=== PATIENT | female | born 1955 | race Caucasian/White ===

== ENCOUNTER → 2023-09-24 07:32 | Outpatient (REF) | payer MEDICARE, OTHER, SELFPAY | LOC: RAD 07:32 | PROVIDERS: ATTENDING PHYSICIAN Internal Medicine Rheumatology; FAMILY PHYSICIAN Family Medicine | DX: M81.0 Age-related osteoporosis without current pathological fracture (principal) | CPT/HCPCS: 77080 ==

== ENCOUNTER → 2023-11-12 14:35 | Outpatient (REF) | payer MEDICARE, SELFPAY | LOC: WDC 14:35 | PROVIDERS: ATTENDING PHYSICIAN Nurse Practitioner Adult Health; FAMILY PHYSICIAN Family Medicine | DX: R92.2 Inconclusive mammogram (principal); Z80.3 Family history of malignant neoplasm of breast | CPT/HCPCS: 76641 ==

== ENCOUNTER → 2023-11-23 09:41 | Outpatient (REF) | payer MEDICARE, SELFPAY ==
--- NOTE | 2023-11-23 15:25 | OID.BR.INTR ---
LUPED Breast Navigator - Initial
- -
Date of Contact: 11/23/23
Met with patient. Patient given written information on navigator services available at [facility]. Will follow up as needed per protocol.
== END ==
LOC: WDC 09:41
PROVIDERS: ATTENDING PHYSICIAN Nurse Practitioner Adult Health; FAMILY PHYSICIAN Family Medicine
DX: N63.11 Unspecified lump in the right breast, upper outer quadrant (principal)
CPT/HCPCS: 88305; 19083; 77065; A4648

== ENCOUNTER → 2024-01-01 07:05 | Outpatient (REF) | payer MEDICARE, SELFPAY | LOC: WDC 07:05 | PROVIDERS: ATTENDING PHYSICIAN Nurse Practitioner Adult Health; FAMILY PHYSICIAN Nurse Practitioner Family | DX: Z12.31 Encounter for screening mammogram for malignant neoplasm of breast (principal) | CPT/HCPCS: 77063; 77067 ==

== ENCOUNTER → 2024-01-10 08:28 | Outpatient (REF) | payer MEDICARE, SELFPAY | LOC: WDC 08:28 | PROVIDERS: ATTENDING PHYSICIAN Nurse Practitioner Adult Health; FAMILY PHYSICIAN Nurse Practitioner Family | DX: R92.8 Other abnormal and inconclusive findings on diagnostic imaging of breast (principal) | CPT/HCPCS: 76642 ==

== ENCOUNTER → 2024-05-26 07:46 | Outpatient (REF) | payer MEDICARE, SELFPAY | LOC: WDC 07:46 | PROVIDERS: ATTENDING PHYSICIAN Nurse Practitioner Adult Health; FAMILY PHYSICIAN Nurse Practitioner Family | DX: R92.8 Other abnormal and inconclusive findings on diagnostic imaging of breast (principal) | CPT/HCPCS: 76642 ==

== ENCOUNTER 2024-07-15 12:27 | Emergency (ER) | payer MEDICARE, SELFPAY ==
[2024-07-15] VITALS (8 sets, daily range): BP systolic 117–152; BP diastolic 69–114; BMI 19.3
--- NOTE | 2024-07-15 12:38 | ED.GENMED ---
History of Present Illness
General
Chief Complaint: Chest Pain
Time Seen by Provider: 07/15/24 12:37
History of Present Illness
History of Present Illness:
TIME OF INITIAL ENCOUNTER: 12:40 PM
HPI: After the patient received allergy shots yesterday, and after she returned home, she developed some chest discomfort. She states this feels like 'almost as if I was in an accident and my chest hit the steering wheel'. There is also a
pleuritic type of component as well. She denies any shortness of breath. She has never had a cardiac evaluation.
EXAM:
GENERAL: Well appearing in no distress
HEENT: Moist oral mucosa
CARDIOVASCULAR: No murmurs, normal heart rate, regular rhythm, No chest wall tenderness
PULMONARY: No respiratory distress, breath sounds are clear and equal
ABDOMEN: Soft with no peritoneal signs, no tenderness
NEUROLOGIC: Excellent strength all extremities, no coordination deficits
PSYCHIATRIC: Appropriate mental status, normal insight and judgement
EXTREMITIES: Nontender, no edema, moves all extremities equally
SKIN: Scattered macular rash noted to the back the patient was not aware of
NUMBER AND COMPLEXITY OF PROBLEMS ADDRESSED AT THE ENCOUNTER
� Chronic conditions affecting care: No significant past medical history
� Acute Exacerbation and/or Progression of Chronic Illness: This is an acute problem
� Differential Diagnosis includes: Chest wall pain, stress/anxiety, biliary colic, PE, ACS
AMOUNT AND/OR COMPLEXITY OF DATA TO BE REVIEWED AND ANALYZED
� I performed an independent evaluation of and my interpretation is:
EKG: Sinus 79, borderline ST elevation in the inferior leads slightly more prominent in comparison to 07/07/2017, incomplete right bundle branch block similar to prior
CT:
X-rays: Chest x-ray clear
Laboratory Studies: CBC unremarkable, initial troponin D-dimer unremarkable
Other:
� Review of other/old records: I reviewed records, there is no evidence of cardiovascular workup in the past other than one EKG
� Clinical information was obtained by an independent historian: None needed
� Prescriptions/Medications Considered but not given:
� Further testing considered but not performed:
RISK OF COMPLICATIONS AND/OR MORBIDITY OR MORTALITY OF PATIENT MANAGEMENT
� Social determinants of health affecting care: Lives at home
� Discussion with other providers: Given the borderline abnormality on EKG, I notified Dr. Pantoja immediately upon my initial evaluation of the patient at approximately 12:45 PM. He will evaluate the patient.
� Escalation of care including admission/observation vs risk of discharge considered:
ANY OTHER UPDATES:
12:50 PM: Appears comfortable. Repeat EKG similar to the first without any definite signs for STEMI. However, will try 1 aspirin and 1 nitroglycerin.
12:55 PM: On reassessment, continues to appear comfortable.
[address] Pantoja evaluated patient in the ED. Ultimately patient is arranged for an outpatient stress test in 2 days and has follow-up on July 31.
Past History
Past History
ED Past Medical History: Other (raynauds)
ED Past Surgical History: Appendectomy
Social History
Tobacco: Non-smoker
Personal:
Living: with family
Phy Exam
Physical Exam
Physical Exam:
See HPI
Scores
Heart Score for Chest Pain Patients
STEMI patient?: Not applicable
Course
Orders/Labs/Results
Orders:
Orders
07/15/24 12:44
Electrocardiogram (*1) Urgent
Reason for Study: Chest Pain
EKG- Treatment ONCE
CR Chest Portable - 1 View Urgent
Comment:
Reason For Exam: cp
Reason Study Needs to be Portable: Unable to Transport
07/15/24 12:45
Electrocardiogram (*1) Urgent
Reason for Study: Chest Pain
EKG- Treatment ONCE
07/15/24 12:46
Complete Blood Count/With Diff Urgent
Comprehensive Metabolic Panel Urgent
D-Dimer Urgent
07/15/24 12:51
Aspirin 325 mg PO NOW STA
Nitroglycerin Sublingual [Nitrostat (Sublingual)] 0.4 mg SL NOW STA
07/15/24 12:57
Troponin I Urgent
07/15/24 15:24
Troponin I Urgent
Abnormal Lab Results
07/15/24
12:46
Absolute Monos (auto) 0.7 H 10^3/uL
(0.1-0.6)
Glucose 108 H mg/dl
(70-99)
Albumin 5.1 H g/dl
(3.5-5.0)
07/15/24 12:46
07/15/24 12:46
Vital Signs
Initial and Last Documented VS:
Initial Vital Signs
Temp Pulse Resp BP Pulse Ox
36.4 C 99 18 150/96 100
07/15/24 12:34 07/15/24 12:34 07/15/24 12:34 07/15/24 12:34 07/15/24 12:34
Last Documented Vital Signs
Temp Pulse Resp BP Pulse Ox
36.4 C 75 18 145/76 99
07/15/24 12:34 07/15/24 13:45 07/15/24 13:45 07/15/24 13:17 07/15/24 13:45
*Critical Care Note
Total Time (30-74mins, 75-104mins- exclusive of procedures): Not Applicable
ED Attending Note
-
Portions of this chart may have been created with voice recognition software.� Occasional wrong word or��sound alike� substitutions may have occurred due to the inherent limitations of voice recognition software.
Discharge Plan
Departure
Patient Disposition: Home (Routine Discharge)
Date of Disposition: 07/15/24
Time of Disposition: 16:27
Patient with high blood pressure during this ER visit?: Yes
Discharge Problem:
Chest pain
Instructions: Chest Pain DCA Follow Up
Referrals:
Celeste Hudson CRNP [Family Provider] -
Mindy Mccabe PA-C [Specified Professional Personl] - 07/31/24 7:40 am (You have a cardiology follow-up appointment at the [facility] office. Please call with questions)
Activity Restrictions/Additional Instructions:
You are scheduled for a stress echo at cardiac services 07/17/24 @10:45AM. Please call [phone] with questions.
Please take baby aspirin 81mg daily until given results of stress testing.
Interventions
Interventions:
*Risk Screen - Suicide Last Done: 07/15/24 13:12
*General Assessment Last Done: 07/15/24 12:34
*Neglect/Abuse Screening Last Done: 07/15/24 12:34
*ED- Fall Risk Assessment Last Done: 07/15/24 12:44
*ED COVID-19 Vaccine History Last Done: 07/15/24 12:34
ED- Cardiac Assessment Last Done: 07/15/24 12:44
Discharge Date and Time
Print Language: GERMAN
[2024-07-15] MEDS: NITROSTAT (SUBLINGUAL) 0.4 MG SL (12:59)
[2024-07-15] MEDS: ASPIRIN 325 MG PO (12:59)
[2024-07-15 13:00] LABS: % Basophils 0.3 % (0-2); % Eosinophils 0.1 % (0-6); % Immature Granulocytes 0.3 % (0-0.5); % Lymphocytes 23.6 % (20.5-51.1); % Monocytes 7.5 % (1.7-9.3); % Neutrophils 68.2 % (42.2-75.2); Absolute Lymphocytes 2.2 10^3/uL (1.2-3.4); Absolute Monocytes 0.7 10^3/uL (0.1-0.6); Absolute Neutrophils 6.3 10^3/uL (1.4-6.5); Hematocrit 41.7 % (37.0-47.0); Hemoglobin 14.1 g/dL (12.0-16.0); Mean Corp Hgb Conc. 33.8 g/dL (33.0-37.0); Mean Corpuscular Hgb 29.9 pg (27.0-31.0); Mean Corpuscular Volume 88.3 fL (81.0-99.0); Mean Platelet Volume 9.9 fL (7.4-10.4); Nucleated Red Blood Cells % 0 %; Platelet Count 200 10^3/uL (130-400); Red Blood Cell Count 4.72 10^6/uL (4.20-5.40); Red Cell Dist. Width 12.7 % (11.5-14.5); White Blood Cell Count 9.2 10^3/uL (4.8-10.8)
[2024-07-15 13:11] LABS: D-Dimer 0.46 ug/mlFEU (0.00-0.50)
--- NOTE | 2024-07-15 13:12 | CON.CAR ---
Addendum entered and electronically signed by Alexey Pantoja MD 07/15/24 16:23:
Attending addendum: Patient seen and examined. Discussed with ED and PA note reviewed. Findings independently confirmed by me. Briefly, this is a 69 y/o physically active female who presented to [facility] with complaints of chest pain
that started last night after an allergy shot. Symptoms were there when she went to bed and there when she woke this morning. Nothing made better or worse. Her initial ECG was notable for only nonspecific changes. Troponin measured below 0.012
ng/ml.
PE:
Gen: Awake, alert, oriented. NAD.
HEENT: NC/AT, sclera anicteric. Hearing normal
Neck: No bruit
Lungs: Clear to bases bilaterally
CV: RRR Normal S1 and S2. No murmur
Ext: No edema.
RECOMMENDATIONS:
-Aspirin 81 mg
-Awaiting repeat troponin. If negative we can discharge with planned outpatient stress echo
-she can followup in our office
-Risk factors well controlled with most recent LDL cholesterol 80 mg/dl
Original Note:
Consultation
Consultation Request
Date/Time Consultation Performed: 07/15/24
Requesting Provider: Dr. Elizabeth
Performing Provider: Farida Hoang PA-C for Dr. Pantoja
Reason for Consultation: CP
Medical History
-
Chief Complaint: CP
History of Present Illness:
Patient is a 69 yo F with PMH of osteoporosis, scoliosis, seasonal allergies and family history of CAD who presented to ER for evaluation of CP. She states yesterday she was at [employer] house[employer] office, feeling well, got allergy shot. She reports upon
returning home, she noted pain with taking a deep breath. Denies associated diaphoresis, lightheadedness, N/V. She reports she went to bed early and this morning still had the pain so came to ER for evaluation. Denies personal history of cardiac
issues. Was just in [place], returned home this past Sunday. No history of clotting issues in self or family members. Reports remains active, walks 3-4 times per week and does core exercises and light weight lifting. She has never had symptoms with
exercise and has never felt limited with activity due to CP/SOB. Labs pending at this time.
PMH:
osteoporosis
scoliosis
seasonal allergies
FH of CAD
Past Medical History
Past Medical History: Other (in HPI)
Social History
Tobacco: Non-Smoker
Alcohol: Occasional
Personal:
Living: With Family
Employment: Employed
Family History
Family History: Other (CHF, CAD)
Allergies / Home Medications
Allergy/AdvReac Type Severity Reaction Status Date / Time
Penicillins Allergy Hives Verified 07/15/24 12:37
Review of Systems
-
History Source: Patient
All other systems: Negative unless noted
Physical Exam
Vital Signs
Temp Pulse Resp BP Pulse Ox
97.5 F 87 17 152/85 100
07/15/24 12:34 07/15/24 12:50 07/15/24 12:50 07/15/24 12:59 07/15/24 12:50
Lab Results
07/15/24 12:46
Physical Exam
General: No Apparent Distress and Comfortable
HEENT: Normocephalic, Anicteric and Moist Mucous Membranes
Respiratory: Clear and Non Labored Respirations
Cardiac: S1/S2 and Regular Rhythm
GI: Soft, Non Tender, Non Distended and Normal Bowel Sounds
Musculoskeletal: No Clubbing, No Cyanosis and No Edema
Skin: Warm and Dry
Neuro: AO x 3
Impression / Plan
-
Primary Solid Surface Fabricator: none prior to admission
Assessment:
Presentation with pleuritic chest discomfort
osteoporosis
scoliosis
seasonal allergies s/p allergy shot 07/14/24
FH of CAD
Recent travel by airplane
Plan:
-Patient presents with chest discomfort appearing mostly pleuritic in nature
-cardiology asked to see patient urgently given ongoing symptoms and EKG with concern for possible inferior ST elevation compared to prior from 2018.
-reports improvement in discomfort since coming to ER but no intervention/medication has resulted in improvement
-check repeat EKG
-labs ok. trop negative x1. repeat trop in several hours for reassessment
-given 324mg asa and SL nitro x1 in ER.
-CXR pending
-further recommendations based on results of pending bloodwork/testing
-d/w nursing
Data Reviewed
-
EKG: Tracing Personally Visualized and interpreted
Labs: Labs Reviewed by me
Old Records: Reviewed
[2024-07-15 13:15] LABS: ALT (SGPT) 34 U/L (0-35); AST (SGOT) 33 U/L (14-36); Albumin 5.1 g/dl (3.5-5.0); Alkaline Phosphatase 70 U/L (38-126); Blood Urea Nitrogen 17 mg/dl (7-17); Calcium 9.6 mg/dl (8.4-10.2); Carbon Dioxide 27 mmol/L (22-30); Chloride 103 mmol/L (98-107); Estimated Creatinine Clearance 64 ml/min; Glucose 108 mg/dl (70-99); Potassium 3.6 mmol/L (3.5-5.1); Sodium 141 mmol/L (135-145); Total Bilirubin 0.9 mg/dl (0.2-1.3); Total Protein 7.3 g/dl (6.3-8.2); eGFR > 60.00
[2024-07-15 13:30] LABS: Troponin I < 0.012 ng/ml
[2024-07-15 15:58] LABS: Troponin I < 0.012 ng/ml
== END 2024-07-15 17:40 | disposition home or self-care (01) ==
LOC: EMR 12:27
PROVIDERS: EMERGENCY PHYSICIAN Emergency Medicine; FAMILY PHYSICIAN Nurse Practitioner Family; OTHER PHYSICIAN Internal Medicine Interventional Cardiology
DX: R07.81 Pleurodynia (principal); M81.0 Age-related osteoporosis without current pathological fracture; M41.9 Scoliosis, unspecified; Z82.49 Family history of ischemic heart disease and other diseases of the circulatory system
CPT/HCPCS: 99285; 71045; 80053; 84484; 85025; 85379; 93005

== ENCOUNTER → 2024-07-17 10:20 | Outpatient (REF) | payer MEDICARE, SELFPAY | LOC: RCS 10:20 | PROVIDERS: ATTENDING PHYSICIAN Internal Medicine Interventional Cardiology; FAMILY PHYSICIAN Nurse Practitioner Family | DX: R94.31 Abnormal electrocardiogram [ECG] [EKG] (principal) | CPT/HCPCS: 93017; 93350 ==

== ENCOUNTER → 2024-08-19 18:31 | Outpatient (REF) | payer MEDICARE, SELFPAY | LOC: WDC 18:31 | PROVIDERS: ATTENDING PHYSICIAN Nurse Practitioner Adult Health; FAMILY PHYSICIAN Nurse Practitioner Family | DX: R92.8 Other abnormal and inconclusive findings on diagnostic imaging of breast (principal) | CPT/HCPCS: 77061; 77065 ==

== ENCOUNTER → 2024-09-09 08:47 | Outpatient (REF) | payer MEDICARE, SELFPAY | LOC: RAD 08:47 | PROVIDERS: ATTENDING PHYSICIAN Nurse Practitioner Adult Health; FAMILY PHYSICIAN Nurse Practitioner Family | DX: R10.2 Pelvic and perineal pain (principal) | CPT/HCPCS: 76830; 76856 ==

== ENCOUNTER → 2024-11-14 13:44 | Outpatient (REF) | payer MEDICARE, SELFPAY | LOC: WDC 13:44 | PROVIDERS: ATTENDING PHYSICIAN Nurse Practitioner Adult Health; FAMILY PHYSICIAN Nurse Practitioner Family | DX: R92.8 Other abnormal and inconclusive findings on diagnostic imaging of breast (principal) | CPT/HCPCS: 76642 ==

== ENCOUNTER → 2024-11-26 12:02 | Outpatient (REF) | payer MEDICARE, SELFPAY | LOC: RAD 12:02 | PROVIDERS: ATTENDING PHYSICIAN Nurse Practitioner Family | DX: M79.674 Pain in right toe(s) (principal) | CPT/HCPCS: 73660 ==

== ENCOUNTER → 2025-01-02 07:13 | Outpatient (REF) | payer MEDICARE, SELFPAY | LOC: WDC 07:13 | PROVIDERS: ATTENDING PHYSICIAN Nurse Practitioner Adult Health; FAMILY PHYSICIAN Nurse Practitioner Family | DX: Z12.31 Encounter for screening mammogram for malignant neoplasm of breast (principal) | CPT/HCPCS: 77063; 77067 ==

== ENCOUNTER → 2025-02-11 07:49 | Outpatient (REF) | payer MEDICARE, SELFPAY | LOC: RAD 07:49 | PROVIDERS: ATTENDING PHYSICIAN Internal Medicine; FAMILY PHYSICIAN Nurse Practitioner Family | DX: M54.9 Dorsalgia, unspecified (principal); M54.2 Cervicalgia; M54.6 Pain in thoracic spine; M81.0 Age-related osteoporosis without current pathological fracture; M48.50XA Collapsed vertebra, not elsewhere classified, site unspecified, initial encounter for fracture | CPT/HCPCS: 72040; 72072; 72100 ==